=== PATIENT | female | born 1970 | race Caucasian/White ===

== ENCOUNTER 2021-04-25 15:51 | Emergency (ER) | payer OTHER ==
[~2021-04-25] VITALS: Ht 162.6 cm; Wt 75.3 kg
[2021-04-25 16:02] VITALS: BP_SYST 142
[2021-04-25 17:04] LABS: BILIRUBIN,URINE NEGATIVE (NEGATIVE); BLOOD, URINE 3+ (NEGATIVE); CLARITY/URINE SL CLOUDY (CLEAR); COLOR,URINE YELLOW (YELLOW); GLUCOSE,URINE NEGATIVE (NEGATIVE); KETONES,URINE TRACE (NEGATIVE); LEUKOCYTE ESTERASE ,URINE 1+ (NEGATIVE); NITRITE, URINE NEGATIVE (NEGATIVE); PH,URINE 5.5 (5.0-8.0); PROTEIN URINE 2+ (NEGATIVE); UROBILINOGEN,URINE 0.2 (0.2-1.0)
[2021-04-25 17:45] LABS: BACTERIA,URINE FEW /HPF (None Seen); MUCUS,URINE None Seen /LPF (None Seen); RBC,URINE >100 /HPF (0-3); WBC,URINE 20-50 /HPF (0-3)
[2021-04-25] MEDS ORDERED: PHEN-726 PO (18:39)
[2021-04-25] MEDS ORDERED: NITR-85 PO (18:39)
[2021-04-25] MEDS ORDERED: PHENAZOPYRIDINE HCL 100 MG TABLET PO ONE (18:45)
[2021-04-25] MEDS ORDERED: NITROFURANTOIN MONOHYD/M-CRYST 100 MG CAPSULE (MacroBID) PO ONE (18:45)
[2021-04-25 18:53] VITALS: BP_SYST 142
== END 2021-04-25 18:53 | disposition home or self-care (01) ==
LOC: SED 15:51
DX: N39.0 Urinary tract infection, site not specified (principal); Z88.1 Allergy status to other antibiotic agents; Z79.899 Other long term (current) drug therapy
CPT/HCPCS: 81000; 87086; 99283

== ENCOUNTER 2022-10-29 09:52 | Emergency (ER) | payer MEDICAID, OTHER ==
[~2022-10-29] VITALS: Ht 162.6 cm; Wt 73.9 kg
[~2022-10-29 09:52] MED LIST: NITR-85 PO; PHEN-726 PO
[2022-10-29 10:00] VITALS: BP_SYST 137
--- NOTE | 2022-10-29 10:04 | NUR ---
BIB HOME BY FAMILY WITH C/O MECHANICAL FALL. PT DENIES HEAD OR NECK TRAUMA. PT LANDED ON HER RIGHT HAND AND RIGHT WRIST IS CURRENTLY DEFORMED. PT STATES SHE HAS 10/10 RIGHT WRIST PAIN. HX - NO MEDICAL HX. PT IS AAX04, VSS, NAD, BREATHING IS EVEN AND UNLABORED, SKIN INTACT. PT IS AMBULATORY WITH STEADY GAIT, PT IN GOWN. PT PLACED ON HAMPER MAKER MACHINE SHOWING NSR, SAFETY PRECAUTIONS AND COMFORT MEASURES IN PLACE. HOB ELEVADED, SIDE RAILS UP, BED IN LOWEST POSITION, CALL LIGHT WITHIN REACH. PENDING MD SINCLAIR AND ORDERS
--- NOTE | 2022-10-29 10:10 | NUR ---
ER at bedside examining patient.
--- NOTE | 2022-10-29 10:18 | NUR ---
Patient to ER bed 7 to gown for evaluation. Side rails up. Report given to EVITA/ NATHALY BUTCHER..
--- NOTE | 2022-10-29 10:35 | NUR ---
Pt ambulates with steady gait to restroom for urine collection.
--- NOTE | 2022-10-29 10:37 | NUR ---
Pt taken to radiology with [facility] for xray. urine screen hcg negative. Pt ambulates with steady gait.
[2022-10-29] MEDS ORDERED: NAPR-688 PO (10:48)
--- NOTE | 2022-10-29 11:00 | NUR ---
Patient given written and verbal discharge instructions and verbalizes understanding. ER MD discussed with patient the results and treatment provided. Patient in stable condition. ID arm band removed. Rx of Naproxyn given. Patient educated on pain management and to follow up with PMD. Opportunity for questions provided and answered. Medication side effect fact sheet provided.
[2022-10-29 11:32] VITALS: BP_SYST 139
== END 2022-10-29 11:00 | disposition home or self-care (01) ==
LOC: SED 09:52
DX: S52.514A Nondisplaced fracture of right radial styloid process, initial encounter for closed fracture (principal); Z88.1 Allergy status to other antibiotic agents; Z79.899 Other long term (current) drug therapy; W01.0XXA Fall on same level from slipping, tripping and stumbling without subsequent striking against object, initial encounter; Y93.89 Activity, other specified; Y92.89 Other specified places as the place of occurrence of the external cause; Y99.8 Other external cause status
CPT/HCPCS: 81025; 99283

== ENCOUNTER 2023-01-16 10:22 | Emergency (ER) | payer MEDICAID ==
[~2023-01-16] VITALS: Ht 162.6 cm; Wt 71.2 kg
[~2023-01-16 10:22] MED LIST changes: +NAPR-688 PO
[2023-01-16 10:34] VITALS: BP_SYST 118
[2023-01-16 11:16] LABS: BILIRUBIN,URINE NEGATIVE (NEGATIVE); COLOR,URINE YELLOW (YELLOW); GLUCOSE,URINE NEGATIVE (NEGATIVE); KETONES,URINE TRACE (NEGATIVE); LEUKOCYTE ESTERASE ,URINE 2+ (NEGATIVE); NITRITE, URINE NEGATIVE (NEGATIVE); PH,URINE 5.5 (5.0-8.0); PROTEIN URINE NEGATIVE (NEGATIVE); UROBILINOGEN,URINE 0.2 (0.2-1.0)
[2023-01-16 11:20] LABS: BLOOD, URINE TRACE (NEGATIVE); CLARITY/URINE SLIGHTLY HAZY (CLEAR)
[2023-01-16 11:27] LABS: BASOPHILS % (AUTO) 0.5 % (0.0-2.0); EOSINOPHILS % (AUTO) 0.3 % (0.0-4.0); HEMATOCRIT 41.1 % (36-48); HEMOGLOBIN 13.6 g/dL (12.0-16.0); LYMPHOCYTES # (AUTO) 2.1 K/uL (1.0-5.5); LYMPHOCYTES % (AUTO) 26.7 % (20.5-51.5); MEAN CORPUSCULAR HEMOGLOBIN 29 pg (27-31); MEAN CORPUSCULAR HGB CONC 33 % (32-36); MEAN CORPUSCULAR VOLUME 87 fL (79.0-98.0); MONOCYTES # (AUTO) 0.7 K/uL (0.0-1.0); MONOCYTES % (AUTO) 9.3 % (1.7-9.3); NEUTROPHILS % (AUTO) 63.2 % (40.0-70.0); PLATELET COUNT (AUTO) 239 K/uL (130-430); RED BLOOD CELL COUNT(AUTO) 4.73 MIL/uL (4.2-6.2); RED CELL DISTRIBUTION WIDTH 13.3 % (9.0-15.0); WHITE BLOOD COUNT (AUTO) 7.8 K/uL (4.8-10.8)
[2023-01-16 11:32] LABS: BACTERIA,URINE RARE /HPF (None Seen); WBC,URINE 20-50 /HPF (0-3)
[2023-01-16 11:43] LABS: CALCIUM 8.6 mg/dL (8.4-11.0); CREATININE 0.89 mg/dL (0.55-1.30)
[2023-01-16 11:48] LABS: ALBUMIN 3.3 g/dL (3.4-4.8); TOTAL BILIRUBIN 0.8 mg/dL (0.0-1.0)
[2023-01-16] MEDS ORDERED: ONDA8TAB60 PO (11:57)
[2023-01-16] MEDS ORDERED: CIPR500T5 PO (11:57)
[2023-01-16] MEDS ORDERED: IBUP-1969 PO (11:57)
[2023-01-16 12:03] VITALS: BP_SYST 131
== END 2023-01-16 12:05 | disposition home or self-care (01) ==
LOC: SED 10:22
DX: N39.0 Urinary tract infection, site not specified (principal); R16.0 Hepatomegaly, not elsewhere classified; R10.31 Right lower quadrant pain; R11.0 Nausea; K59.00 Constipation, unspecified; Z88.1 Allergy status to other antibiotic agents; Z79.899 Other long term (current) drug therapy
CPT/HCPCS: 36415; 76376; 80053; 81000; 83690; 85025; 87086; 99284